=== PATIENT | female | born 1985 ===

== ENCOUNTER → 2020-12-29 | Outpatient (CLI) | payer OTHER | LOC: MHCPAIN 10:33 | DX: M47.812 Spondylosis without myelopathy or radiculopathy, cervical region (principal); M54.12 Radiculopathy, cervical region; G89.29 Other chronic pain | CPT/HCPCS: G0463 ==

== ENCOUNTER → 2021-01-13 | Outpatient (CLI) | payer OTHER | LOC: MHCPAIN 07:34 | DX: M47.812 Spondylosis without myelopathy or radiculopathy, cervical region (principal); M54.12 Radiculopathy, cervical region | CPT/HCPCS: J1100; Q9967 ==

== ENCOUNTER → 2021-02-09 | Outpatient (CLI) | payer OTHER | LOC: MHCPAIN 10:05 | DX: M47.812 Spondylosis without myelopathy or radiculopathy, cervical region (principal); M54.12 Radiculopathy, cervical region; G89.29 Other chronic pain | CPT/HCPCS: G0463 ==

== ENCOUNTER → 2021-02-17 | Outpatient (CLI) | payer OTHER | LOC: MHCPAIN 08:26 | DX: M47.812 Spondylosis without myelopathy or radiculopathy, cervical region (principal); M54.12 Radiculopathy, cervical region | CPT/HCPCS: J1100; Q9967 ==

== ENCOUNTER → 2021-02-23 | Outpatient (CLI) | payer OTHER | LOC: MHCPAIN 09:47 | DX: M47.812 Spondylosis without myelopathy or radiculopathy, cervical region (principal); M54.2 Cervicalgia | CPT/HCPCS: G0463 ==

== ENCOUNTER → 2021-07-12 | Outpatient (CLI) | payer OTHER | LOC: MHCPAIN 09:36 | DX: M47.812 Spondylosis without myelopathy or radiculopathy, cervical region (principal); M54.12 Radiculopathy, cervical region; G89.29 Other chronic pain | CPT/HCPCS: G0463 ==

== ENCOUNTER → 2021-07-27 | Outpatient (CLI) | payer OTHER | LOC: MHCPAIN 08:24 | DX: M47.812 Spondylosis without myelopathy or radiculopathy, cervical region (principal); M54.12 Radiculopathy, cervical region | CPT/HCPCS: J1100; Q9967 ==

== ENCOUNTER → 2021-08-09 | Outpatient (CLI) | payer OTHER | LOC: MHCPAIN 08:04 | DX: M47.812 Spondylosis without myelopathy or radiculopathy, cervical region (principal); M54.2 Cervicalgia; M54.12 Radiculopathy, cervical region | CPT/HCPCS: G0463 ==